=== PATIENT | male | born 1995 | race Caucasian/White ===

== ENCOUNTER 2017-12-12 01:58 | Emergency (ER) | payer BC ==
[~2017-12-12] VITALS: Ht 185.4 cm; Wt 86.2 kg
[~2017-12-12 01:58] MED LIST: HYOS0.1216 PO; ONDA-42 SL
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
[2017-12-12] MEDS ORDERED: TETANUS,DIPTH,PERTUSS P/F (BOOSTRIX) 0.5 ML VIAL IM STA (02:11)
[2017-12-12] MEDS ORDERED: KETOROLAC 60 MG/2 ML VIAL IM STA (02:11)
[2017-12-12] MEDS ORDERED: morphine INJ 10 MG/ML 1ML (SYR OR VIAL) IM STA (02:11)
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
[2017-12-12] MEDS ORDERED: HYDR-34 PO (02:30)
[2017-12-12 02:54] VITALS: BP 140/95
== END 2017-12-12 02:50 | disposition home or self-care (01) ==
LOC: EDUNIT# 01:58 → ER 02:01
DX: T23.031A Burn of unspecified degree of multiple right fingers (nail), not including thumb, initial encounter (principal); T23.032A Burn of unspecified degree of multiple left fingers (nail), not including thumb, initial encounter; R40.2142 Coma scale, eyes open, spontaneous, at arrival to emergency department; R40.2252 Coma scale, best verbal response, oriented, at arrival to emergency department; R40.2362 Coma scale, best motor response, obeys commands, at arrival to emergency department; Z23 Encounter for immunization; X13.1XXA Other contact with steam and other hot vapors, initial encounter
CPT/HCPCS: 90471; 90715; 96372; 99282

== ENCOUNTER 2018-12-18 12:38 | Observation (INO) | payer BC ==
[~2018-12-18] VITALS: Ht 185.4 cm; Wt 85.3 kg
[~2018-12-18 12:38] MED LIST changes: -FAMO20TA5 PO; -IBUP-844 PO; -PROP10TA8 PO
[2018-12-18 17:20] VITALS: BP 140/84
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
[2018-12-18] MEDS ORDERED: PATIENT MAY USE OWN MEDS, ALL PO SCH (17:30)
[2018-12-18] MEDS ORDERED: IBUPROFEN 800 MG (MOTRIN) TAB PO NR (17:30)
[2018-12-18] MEDS: NS IV 1000 ML 1,000 ML IV SCH (17:30)
[2018-12-18] MEDS ORDERED: ONDANSETRON 4 MG/2 ML (SDV) Z0FRAN IV PRN (17:30)
[2018-12-18 17:53] VITALS: BP 140/84
[2018-12-18 17:59] LABS: MAGNESIUM 2.3 MG/DL (1.8-2.4)
--- NOTE | 2018-12-18 18:40 | Diagnostic Imaging Report ---
INDICATION: Chest pain. TECHNIQUE: PA and lateral views of the chest are obtained. COMPARISON: Comparison is made to study of 06/07/2011. FINDINGS: Heart size and pulmonary vascularity are within normal limits, and the lungs are clear, bilaterally. IMPRESSION: Unremarkable chest. Dictated by: Dictated on workstation # [id number]
[2018-12-18 19:06] VITALS: BP 136/86
[2018-12-18] MEDS: FAMOTIDINE 20 MG (PEPCID) TABLET PO SCH (20:30)
[2018-12-18] MEDS ORDERED: IBUPROFEN 600 MG (MOTRIN) TAB PO PRN (21:00)
[2018-12-19 00:52] VITALS: BP 121/72
[2018-12-19] MEDS: NS IV 1000 ML 1,000 ML IV SCH ×3 (01:33→18:01)
[2018-12-19 04:30] VITALS: BP 122/72
[2018-12-19 08:00] VITALS: BP 130/77
[2018-12-19] MEDS ORDERED: PROP10TA8 PO (09:11)
[2018-12-19] MEDS: IBUPROFEN 600 MG (MOTRIN) TAB PO SCH ×3 (09:15→21:34)
[2018-12-19] MEDS: FAMOTIDINE 20 MG (PEPCID) TABLET PO SCH ×2 (09:15→21:33)
--- NOTE | 2018-12-19 09:52 | Consultation-Cardiology ---
HPI-Cardiology Cardiology Consultation: Date of Consultation 12/19/18 Date of Admission Attending Physician Pat Zheng DO Admitting Physician Pat Zheng DO Consulting Physician Montrell NAVA MD HPI: Time Seen by a Provider: 09:15 Chief Complaint: Chest pain This is a 23-year-old gentleman who is a patient of Dr. Zheng. He denies any significant post medical or cardiac history. He denies active smoking, diabetes , hyperlipidemia. He does have family history of premature CAD. He presents with chest pain that he is been having for a month. No viral prodrome is noted. The pain is in the center of the chest and occasionally in the left shoulder. There is no associated cardiac symptoms. There is no relieving factors however moving the arms causes more discomfort. Review of Systems-Cardiology Review of Systems Constitutional: As described under HPI; No As described under HPI, No no symptoms reported, No chills, No fever, No lightheadedness Eyes: No As described under HPI, No no symptoms reported, No blindness, No blurred vision, No contact lenses, No drainage, No decreased acuity, No foreign body sensation, No pain, No vision change Ears/Nose/Throat: No As described under HPI, No no symptoms reported, No chronic hearing loss, No ear discharge, No ear pain, No nasal drainage, No ulcerations Respiratory: No no symptoms reported; As described under HPI; No As described under HPI, No cough, No orthopnea, No shortness of breath, No SOB with excertion Cardiovascular: No no symptoms reported; As described under HPI; No As described under HPI; chest pain; No edema, No irregular heart rate, No lightheadedness, No palpitations Gastrointestinal: No no symptoms reported, No As described under HPI, No abdomen distended, No abdominal pain, No blood streaked bowels, No constipation , No diarrhea, No nausea, No vomiting, No stool coloration changes Genitourinary: No As described under HPI, No burning, No dysuria, No discharge , No frequency, No flank pain, No hematuria, No urgency Skin: No rash, No skin related problems, No ulcerations Psychiatric/Neurological: No anxiety, No depression, No seizure, No focal weakness, No syncope Hematologic: No bleeding abnormalities MMD-Cjzmzz-Bqqskl Hx Patient Social History Alcohol Use: Regular Use Recreational Drug Use: No 2nd Hand Smoke Exposure: No Recent Foreign Travel: No Recent Infectious Disease Expo: No Physical Abuse Screen: No Sexual Abuse: No Immunizations Up To Date Tetanus Booster (TDap): More than 5yrs Past Medical History PMH As described under Assessment. Family Medical History Family History: Arthritis 19 MOTHER Cardiovascular disease 19 MOTHER Diabetes mellitus 19 MOTHER Headache disorder 19 MOTHER G8 SISTER (older sister) Hypercholesterolemia 19 MOTHER G8 BROTHER (older brother) Hypertension 19 MOTHER Kidney disease 19 MOTHER (kidney stones poly cystitis) Severe allergy 19 FATHER 19 MOTHER G8 SISTER (younger) Thyroid disease 19 MOTHER No Family History of: Albert's disease Allergies and Home Medications Allergies Coded Allergies: No Known Drug Allergies (Unverified , 06/07/11) Home Medications Propranolol HCl 10 Mg Tablet, 10 MG PO BID, (Reported) Patient Home Medication List Home Medication List Reviewed: Yes Physical Exam-Cardiology Physical Exam Vital Signs/I&O 12/19/18 12/19/18 12/19/18 12/19/18 07:00 08:00 08:00 12:00 Temp 98.4 99.2 Pulse 58 65 73 Resp 20 20 B/P (MAP) 130/77 (94) 129/72 (91) Pulse Ox 98 94 O2 Delivery Room Air Room Air Room Air 12/19/18 12/19/18 12/19/18 13:00 15:18 15:50 Temp 99.2 98.9 Pulse 69 76 Resp 20 B/P (MAP) 138/84 (102) Pulse Ox 97 O2 Delivery Room Air 12/19/18 00:00 Intake Total 900 ml Output Total 1000 ml Balance -100 ml Capillary Refill : Constitutional: appears stated age, AAO x 3; No apparent distress; well- developed, well-nourished HEENT: PERRL; No normal ENT inspection, No TMs normal, No pharynx normal, No scleral icterus (R), No scleral icterus (L), No pale conjunctivae (R), No pale conjunctivae (L), No photophobia, No TM abnormal (R), No TM abnormal (L), No pharyngeal erythema, No tonsillar exudate, No other, No discharge, No EOMI; hearing is well preserved; No hard of hearing; oral hygience is good; No ulceration, No xanthelasmas are seen Neck: No non-tender, No full range of motion, No supple, No normal inspection, No carotid bruit, No limited range of motion, No lymphadenopathy (R), No lymphadenopathy (L), No tender lateral, No tender midline, No thyromegaly, No other; carotid pulses are 2 + bilaterally; No with good upstrokes Respiratory: No accessory muscle use, No respiratory distress, No chest tender , No chest expansion is symmetric; chest is bilaterally symmetric; No lungs clear to percussion; lungs clear to auscultation; No crackles, No rhonchi, No rales, No stridor, No wheezing, No pleural rub, No other Cardiovascular: regular rate-rhythm; No irregularly irregular, No extra beats, No parasternal heave is noted, No JVD, No edema, No bradycardia, No tachycardia , No point of maximal impulse, No cardiac thrills are palpable; S1 and S2; No gallop/S3, No gallop/S4, No diastolic murmur, No systolic murmur, No friction rub, No click, No other Gastrointestinal: No tender, No soft, No round, No distended, No pulsatile mass , No organomegaly, No guarding, No rebound, No tenderness, No hernia, No mass, No audible bowel sounds, No abnormal bowel sounds, No abdominal bruits, No spleenomegaly, No other Rectal: deferred Extremities: No normal range of motion, No non-tender, No normal inspection, No pedal edema, No calf tenderness, No normal capillary refill, No pelvis stable , No calf tenderness, No inflammation, No pedal edema, No slow capillary refill , No swelling, No other, No abrasion, No clubbing, No cyanosis, No ecchymosis, No laceration, No no lower extremity edema bilateral, No significant edema, No tenderness, No wound Neurologic/Psychiatric: no motor/sensory deficits, alert, normal mood/affect, oriented x 3, power is 5/5 both on sides Skin: No normal color, No warm/dry, No cyanosis, No cool, No diaphoresis, No damp, No ecchymosis, No jaundice, No mottled, No pallor, No rash, No tattoos/ piercings, No ulcerations, No rash on exposed areas, No ulcerations on exposed areas, No other Data Review Labs Laboratory Tests 12/19/18 01:20: Troponin I < 0.028 A/P-Cardiology Assessment/Admission Diagnosis Atypical chest pain, Hypertension Plan However initial working diagnosis was pericarditis. We gave him ibuprofen 800 mg with some relief. Echocardiogram done today is totally normal with normal LV and RV size and function. There is no pericardial thickening or pericardial effusion. Negative serial troponin and CRP. His symptoms of chest pain are very atypical with reproducible pain with moving his arms. Musculoskeletal chest pain cannot be ruled out. I've discussed at length with the patient and Dr. Zheng. I have not recommended a treadmill stress test. He can be discharged on NSAIDs and follow-up with Dr. Zheng early next week. If he continues to have recurrent chest pain episodes we may perform a treadmill stress test next week. Patient understands. Thank you for your consultation. Please call me if you have any questions. Neville Nava MD, FACP, FACC, FSCAI, FHRS, CCDS Interventional Cardiology Cardiac Electrophysiology Vascular Medicine and Endovascular Interventions Clinical Quality Measures DVT/VTE Risk/Contraindication: Risk Factor Score Per Nursin RFS Level Per Nursing on Admit: 1=Low/No VTE PPX Montrell NAVA MD December 19, 2018 9:52 am
[2018-12-19 12:00] VITALS: BP 129/72
[2018-12-19 15:50] VITALS: BP 138/84
[2018-12-19 19:10] VITALS: BP 137/70
--- NOTE | 2018-12-19 22:20 | History & Physicial ---
History of Present Illness History of Present Illness Reason for visit/HPI This is a 23 year old male with a strong family history of CAD who presented to my office with atypical chest pain. He was sent for a EKG and lab which was concerning for possible early pericarditis so he was admitted for further evaluation and treatment. Date of Admission December 18, 2018 at 17:15 Date Seen by a Provider: December 19, 2018 Time Seen by a Provider: 08:40 I consulted on this patient on 12/19/18 22:16 Attending Physician Pat Zheng DO Admitting Physician Pat Zheng DO Consult Allergies and Home Medications Allergies Coded Allergies: No Known Drug Allergies (Unverified , 06/07/11) Home Medications Propranolol HCl 10 Mg Tablet, 10 MG PO BID, (Reported) Patient Home Medication List Home Medication List Reviewed: Yes Past Wkpnouc-Lbatta-Pvlglm Hx Patient Social History Alcohol Use: Regular Use Number of Drinks Today: 1 Alcohol Beverage of Choice: Beer Recreational Drug Use: No 2nd Hand Smoke Exposure: No Physical Abuse Screen: No Sexual Abuse: No Recent Foreign Travel: No Contact w/other who traveled: No Recent Hopitalizations: No Recent Infectious Disease Expo: No Immunizations Up To Date Tetanus Booster (TDap): More than 5yrs Pediatric: Yes Seasonal Allergies Seasonal Allergies: Yes Surgeries No Respiratory No Currently Using CPAP: No Currently Using BIPAP: No Cardiovascular No Neurological No Reproductive System Hx Reproductive Disorders: No Sexually Transmitted Disease: No HIV/AIDS: No Genitourinary No Gastrointestinal No Musculoskeletal No Endocrine History of Endocrine Disorders: No HEENT History of HEENT Disorders: No ([place]) Cancer No Psychosocial History of Psychiatric Problem: No Integumentary History of Skin or Integumenta: No Blood Transfusions History of Blood Disorders: No Adverse Reaction to a Blood Tr: No Family Medical History Family Hx: Arthritis 19 MOTHER Cardiovascular disease 19 MOTHER Diabetes mellitus 19 MOTHER Headache disorder 19 MOTHER G8 SISTER (older sister) Hypercholesterolemia 19 MOTHER G8 BROTHER (older brother) Hypertension 19 MOTHER Kidney disease 19 MOTHER (kidney stones poly cystitis) Severe allergy 19 FATHER 19 MOTHER G8 SISTER (younger) Thyroid disease 19 MOTHER No Family History of: [place]'s disease Review of Systems Constitutional: weakness EENTM: No see HPI, No no symptoms reported, No ear discharge, No hearing loss, No ear pain, No blurred vision, No double vision, No eye pain, No tearing, No vision loss, No dental problems, No hoarseness, No mouth pain, No mouth swelling , No epistaxis, No nose congestion, No nose pain, No throat pain, No throat swelling, No other Respiratory: short of breath Cardiovascular: chest pain Gastrointestinal: No RUQ, No LUQ, No RLQ, No LLQ, No no symptoms reported, No see HPI, No abdominal pain, No constipation, No diarrhea, No dysphagia, No hematemesis, No heartburn, No jaundice, No loss of appetite, No melena, No nausea, No vomiting, No other Genitourinary: No no symptoms reported, No see HPI, No decreased output, No discharge, No dysuria, No frequency, No hematuria, No hesitancy, No incontinence , No nocturia, No pain, No other Musculoskeletal: No no symptoms reported, No see HPI, No back pain, No gout, No joint pain, No joint swelling, No muscle pain, No muscle stiffness, No muscle cramps, No muscle twitching, No muscle weakness, No neck pain, No other Skin: No no symptoms reported, No see HPI, No change in color, No change in hair/nails, No dryness, No hx of skin cancer, No lesions, No lumps, No pruritus , No rash, No other Psychiatric/Neurological: Denies No Symptoms Reported, Denies See HPI, Denies Anxiety, Denies Depressed, Denies Emotional Problems, Denies Headache, Denies Numbness, Denies Paresthesia, Denies Pre-Existing Deficit, Denies Seizure, Denies Tingling, Denies Tremors, Denies Weakness, Denies Other Physical Exam Vital Signs Vital Signs - First Documented 12/18/18 17:20 Temp 97.9 Pulse 92 Resp 20 B/P (MAP) 140/84 Pulse Ox 96 O2 Delivery Room Air Capillary Refill : Height, Weight, BMI Height: 6'1.00" Weight: 188lbs. 2.0oz. 85.302349hn; 24.8 BMI Method:Stated General Appearance: No Apparent Distress Neck: Supple Respiratory: Lungs Clear Cardiovascular: Regular Rate, Rhythm Gastrointestinal: Normal Bowel Sounds, Non Tender, Soft Rectal: Deferred Back: No CVA Tenderness Extremity: Non Tender, No Calf Tenderness, No Pedal Edema Neurologic/Psychiatric: Alert, Oriented x3 Skin: Warm/Dry Assessment/Plan Assessment and Plan 1. Chest Pain with possible pericarditis--admit, check 2-D ECHO, repeat cardiac enzymes, cover with ibuprofen, consult cardiology Admission Diagnosis Admission Status: Observation Clinical Quality Measures DVT/VTE Risk/Contraindication: Risk Factor Score Per Nursin RFS Level Per Nursing on Admit: 1=Low/No VTE PPX PAT ZHENG DO December 19, 2018 22:20
[2018-12-20 00:45] VITALS: BP 129/73
[2018-12-20] MEDS: NS IV 1000 ML 1,000 ML IV SCH ×2 (03:36→03:45)
[2018-12-20] MEDS: IBUPROFEN 600 MG (MOTRIN) TAB PO SCH ×2 (03:45→09:50)
[2018-12-20 04:00] VITALS: BP 119/63
[2018-12-20 08:00] VITALS: BP 126/63
--- NOTE | 2018-12-20 08:36 | Cardiology Progress Note ---
Cardiology SOAP Progress Note Subjective: chest pain is much better. Objective: I&O/Vital Signs 12/20/18 12/20/18 12/20/18 12/20/18 00:43 00:45 04:00 07:00 Temp 97.4 97.5 Pulse 52 58 67 52 Resp 18 18 B/P (MAP) 129/73 (91) 119/63 (81) Pulse Ox 94 97 O2 Delivery Room Air Room Air 12/20/18 00:00 Intake Total 3240 ml Output Total 2875 ml Balance 365 ml Weight (Pounds): 188 Weight (Ounces): 2.0 Weight (Calculated Kilograms): [id number] Constitutional: appears stated age, AAO x 3; No apparent distress; well- developed, well-nourished Respiratory: No accessory muscle use, No respiratory distress, No chest tender , No chest expansion is symmetric; chest is bilaterally symmetric; No lungs clear to percussion; lungs clear to auscultation; No crackles, No rhonchi, No rales, No stridor, No wheezing, No pleural rub, No other Cardiovascular: regular rate-rhythm; No irregularly irregular, No extra beats, No parasternal heave is noted, No JVD, No edema, No bradycardia, No tachycardia , No point of maximal impulse, No cardiac thrills are palpable; S1 and S2; No gallop/S3, No gallop/S4, No diastolic murmur, No systolic murmur, No friction rub, No click, No other Gastrointestional: No tender, No soft, No round, No distended, No pulsatile mass, No organomegaly, No guarding, No rebound, No tenderness, No hernia, No mass, No audible bowel sounds, No abnormal bowel sounds, No abdominal bruits, No spleenomegaly, No other Extremities: No normal range of motion, No non-tender, No normal inspection, No pedal edema, No calf tenderness, No normal capillary refill, No pelvis stable , No calf tenderness, No inflammation, No pedal edema, No slow capillary refill , No swelling, No other, No abrasion, No clubbing, No cyanosis, No ecchymosis, No laceration, No no lower extremity edema bilateral, No significant edema, No tenderness, No wound Neurologic/Psychiatric: no motor/sensory deficits, alert, normal mood/affect, oriented x 3, power is 5/5 both on sides Skin: No normal color, No warm/dry, No cyanosis, No cool, No diaphoresis, No damp, No ecchymosis, No jaundice, No mottled, No pallor, No rash, No tattoos/ piercings, No ulcerations, No rash on exposed areas, No ulcerations on exposed areas, No other Results/Procedures: Labs Laboratory Tests 12/20/18 04:05: Erythrocyte Sedimentation Rate 1, C-Reactive Protein High Sensitivity 0.06 A/P: Assessment/Dx: Atypical chest pain, Hypertension Plan: However initial working diagnosis was pericarditis. He continues to be on ibuprofen with significant relief. Echocardiogram done yesterday is totally normal with normal LV and RV size and function. There is no pericardial thickening or pericardial effusion. Negative serial troponin and CRP. His symptoms of chest pain are very atypical with reproducible pain with moving his arms. Musculoskeletal chest pain cannot be ruled out. I've discussed at length with the patient and Dr. Zheng. I have not recommended a treadmill stress test. He can be discharged on NSAIDs and follow-up with Dr. Zheng early next week. If he continues to have recurrent chest pain episodes we may perform a treadmill stress test next week. Patient understands. Thank you for your consultation. Please call me if you have any questions. Neville Nava MD, FACP, FACC, FSCAI, FHRS, CCDS Interventional Cardiology Cardiac Electrophysiology Vascular Medicine and Endovascular Interventions Montrell NAVA MD December 20, 2018 08:36
[2018-12-20] MEDS: FAMOTIDINE 20 MG (PEPCID) TABLET PO SCH (09:51)
--- NOTE | 2018-12-20 10:36 | NUR ---
CM/SS patient was concerned about the hospital bill. 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 Supplied him with application for financial service representative and discussed unlikely that he qualify.
[2018-12-20] MEDS ORDERED: IBUP-844 PO (10:49)
[2018-12-20] MEDS ORDERED: FAMO20TA5 PO (10:49)
--- NOTE | 2018-12-20 10:50 | Discharge Inst-Simple/Standard ---
Discharge Inst-Standard Discharge Medications New, Converted or Re-Newed RX: Transmitted to Pharmacy Patient Instructions/Follow Up Plan of Care/Instructions/FU: Fwup with me or Sunday of next week Activity as Tolerated: Yes Discharge Diet: No Restrictions Planned Outpatient Orders/Ref. Pneu Vac Indicated: Yes PETER BAIG DO December 20, 2018 10:50
[2018-12-20 12:00] VITALS: BP 126/72
--- NOTE | 2018-12-20 13:58 | Discharge Summary ---
Diagnosis/Chief Complaint Date of Admission December 18, 2018 at 17:15 Date of Discharge Discharge Date: December 20, 2018 Discharge Diagnosis 1. Atypical Chest Pain--appears to be Chest Wall Pain 2. Hypertension/Benign Essential Tremor--stable Reason Hospital Visit This is a 23 year old male with a strong family history of CAD who presented to my office with atypical chest pain. He was sent for a EKG and lab which was concerning for possible early pericarditis so he was admitted for further evaluation and treatment. Discharge Summary Hospital Course Hospital Course This is a 23 year old male with a strong family history of CAD who presented to my office with atypical chest pain. He was sent for a EKG and lab which was concerning for possible early pericarditis so he was admitted for further evaluation and treatment. The patient was admitted to [facility] with telemetry. He had repeat cardiac enzymes which were negative as well as an echocardiogram which showed no evidence of pericarditis. His chest pain responded to ibuprofen. Since there was no sign of pericarditis it was decided he could be discharged home on ibuprofen for chest wall pain etiology and he will have a stress test as an outpatient due to his strong family history of coronary disease. Labs Laboratory Tests 12/18/18 15:05: 12/19/18 01:20: 12/20/18 04:05: Procedures None. Discharge Physical Examination Allergies: Coded Allergies: No Known Drug Allergies (Unverified , 06/07/11) Vitals & I&Os Vital Signs Date Time Temp Pulse Resp B/P (MAP) Pulse Ox O2 Delivery O2 Flow Rate FiO2 12/20/18 13:09 75 12/20/18 12:00 98.4 18 126/72 (90) 96 Room Air General Appearance: Alert, Oriented X3, Cooperative Respiratory: Clear to Auscultation Cardiovascular: Regular Rate Abdominal: Normal Bowel Sounds, Soft, No Tenderness Extremities: No Clubbing, No Cyanosis, No Edema Psych/Mental Status: Mental Status NL, Mood NL Discharge Home Medications Reviewed and agree with Discharge Medication list on patient's Discharge Instruction sheet Instructions to Patient/Family Please see electronic discharge instructions given to patient. Clinical Quality Measures DVT/VTE Risk/Contraindication: Risk Factor Score Per Nursin RFS Level Per Nursing on Admit: 1=Low/No VTE PPX PETER BAIG DO December 20, 2018 13:57
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
== END 2018-12-20 10:47 | disposition home or self-care (01) ==
LOC: EDSTATUS 12:38 → UNDOADMIN 17:15 → 4TH 17:15 → UNDODISIN 12-20 10:47
PROVIDERS: ADMIT Family Medicine; ATTEND Family Medicine
DX: R07.89 Other chest pain (principal); I10 Essential (primary) hypertension; G25.0 Essential tremor; Z82.49 Family history of ischemic heart disease and other diseases of the circulatory system
CPT/HCPCS: 36415; 71046; 83735; 84484; 85652; 86141; 93005

== ENCOUNTER → 2018-12-18 | Outpatient (CLI) | payer BC ==
[~2018-12-18] MED LIST changes: +FAMO20TA5 PO; +HYDR-34 PO; +IBUP-844 PO; +PROP10TA8 PO
[2018-12-18 15:11] LABS: BASOPHILS % (AUTO) 0 % (0-10); EOSINOPHILS # (AUTO) 0.1 10^3/uL (0.0-0.3); EOSINOPHILS % (AUTO) 3 % (0-10); HEMATOCRIT 46 % (40-54); HEMOGLOBIN 16.1 G/DL (13.3-17.7); LYMPHOCYTES # (AUTO) 1.4 X 10^3 (1.0-4.0); LYMPHOCYTES % (AUTO) 30 % (12-44); MEAN CORPUSCULAR HEMOGLOBIN 32 PG (25-34); MEAN CORPUSCULAR HGB CONC 35 G/DL (32-36); MEAN CORPUSCULAR VOLUME 92 FL (80-99); MEAN PLATELET VOLUME 10.2 FL (7.4-10.4); MONOCYTES # (AUTO) 0.6 X 10^3 (0.0-1.0); MONOCYTES % (AUTO) 12 % (0-12); NEUTROPHILS # (AUTO) 2.6 X 10^3 (1.8-7.8); NEUTROPHILS % (AUTO) 55 % (42-75); PLATELET COUNT 160 10^3/uL (130-400); RED CELL DISTRIBUTION WIDTH 13.2 % (10.0-14.5); WHITE BLOOD COUNT 4.8 10^3/uL (4.3-11.0)
[2018-12-18 15:30] LABS: ALANINE AMINOTRANSFERASE 29 U/L (0-55); ALBUMIN 4.7 GM/DL (3.2-4.5); ALKALINE PHOSPHATASE 56 U/L (40-136); BILIRUBIN,TOTAL 0.6 MG/DL (0.1-1.0); BUN/CREATININE RATIO 12; CALCIUM 10.2 MG/DL (8.5-10.1); CARBON DIOXIDE 30 MMOL/L (21-32); CHLORIDE 104 MMOL/L (98-107); CREATININE SERUM 0.99 MG/DL (0.60-1.30); GFR ESTIMATED > 60; GLUCOSE 88 MG/DL (70-105); SODIUM 140 MMOL/L (135-145); TOTAL PROTEIN 6.8 GM/DL (6.4-8.2)
== END ==
LOC: CARD 14:37
PROVIDERS: ATTEND Nurse Practitioner Family
DX: R07.9 Chest pain, unspecified (principal)
CPT/HCPCS: 36415; 80053; 84443; 85025; 93005

== ENCOUNTER → 2018-12-31 | Outpatient (CLI) | payer BC ==
[2018-12-31] VITALS (8 sets, daily range): BP systolic 124–140; BP diastolic 73–89
[~2018-12-31] MED LIST changes: +FAMO20TA5 PO; +IBUP-844 PO; +NS IV 1000 ML 1,000 ML IV SCH; +NS IV 1000 ML 1,000 ML ONE; +PROP10TA8 PO
--- NOTE | 2018-12-31 11:30 | NUR ---
moved into [facility] from stress test room to observe and give iv fluids for a few hours. on monitors, with bp q 15 mins. near mid recovery time of stress test pt had voiced concern about to vomit, become pale, grossly diaphoretic. i was called into room to assist pt was in a sitting position, not verbal, poorly responsive. quickly laid to flat position, elevated legs. noted to be in sr on monitor rate 60-70's, sbp upon entry to room 70's, noted to be 140 on previous. #20 g x1 stick to l AC, with 1L ns hung wide open. next sbp noted 110's. loc and normal skin colore returned. continued to monitor. in room, with orders. taking liquids and eating crackers currently, no c/o's voiced.
--- NOTE | 2019-01-01 07:18 | STRESS TEST ---
DATE OF SERVICE: 12/31/2018 EXERCISE TOLERANCE TEST ORDERING PHYSICIAN: Dr. Zheng. CLINICAL DIAGNOSIS: Chest discomfort. Exercise tolerance test was carried out. Margarito protocol was employed. Heart rate and blood pressure responses to exercise were normal. The patient completed 5 stages of Margarito protocol. Test was stopped on account of shortness of breath and fatigue. He attained 91% of maximum predicted heart rate. He attained 15.1 METs of workload. Heart rate and blood pressure product was [id number]. There was no significant arrhythmia. There was no ST segment deviation. In the recovery phase, he had a transient episode of mild relative bradycardia (sinus bradycardia) associated with a transiently low blood pressure. This was associated with near syncope. At that time, he was sitting up. He was made to lie flat and the legs were raised. This resulted in improvement of symptoms and blood pressure. Subsequently, he received 1 liter of normal saline and was kept under observation for three hours. He did not have any arrhythmia. His blood pressure continued to consistently be normal. He did not experience any symptoms. The transient episode appears to have been a vasovagal episode. He has been advised close outpatient followup. CONCLUSIONS: 1. No evidence of exercise-induced myocardial ischemia or arrhythmia. Brief episode of near-syncope in recovery, likely vasovagal (mild relative bradycardia and brief episode of hypotension, responsive to Trendelenburg). 2. Outpatient followup advised and I discussed the results with Dr. Zheng. Job ID: [id number] DocumentID: [id number] Dictated Date: 12/31/2018 14:03:17 Collection Systems Worker Date: 12/31/2018 16:36:39 Dictated By: RIK FAUST MD, MA, FACP, FACC, MTDD
== END ==
LOC: CARD 09:57
PROVIDERS: ATTEND Family Medicine
DX: R07.9 Chest pain, unspecified (principal); Z82.49 Family history of ischemic heart disease and other diseases of the circulatory system
CPT/HCPCS: 93017